=== PATIENT | female | born 1940 | race Caucasian/White ===

== ENCOUNTER 2017-11-02 18:41 | Emergency (ER) | payer MEDICARE, BC ==
[2017-11-02] MEDS ORDERED: Sodium Chloride 0.9% 10 ML Syringe FLUSH PRN (19:37)
[2017-11-02] MEDS ORDERED: Pantoprazole 40 MG Vial IVPUSH ONE (19:37)
[2017-11-02] MEDS ORDERED: Ondansetron 4 MG/2 ML SDV IVPUSH ONE (19:37)
--- NOTE | 2017-11-02 19:43 | EDM.PDOC ---
ED HPI GENERAL MEDICAL PROBLEM - General Chief Complaint: Abdominal Pain Stated Complaint: ABDOMINAL PAIN AND NASEOUS Time Seen by Provider: 11/02/17 19:20 Source of Information: Reports: Patient, Family, Old Records History Limitations: Reports: No Limitations - History of Present Illness INITIAL COMMENTS - FREE TEXT/NARRATIVE: Marilu comes into [facility] ED with a 7 mos hx of intermittent nausea. There has been an associated wt loss of several pounds, and restricted dietary intake. There has been no vomiting, constipation or yarelis diarrhea. Stools are not pale or discolored. Today she reports some retrosternal and epigastric burning pain in the abdomen. There is no radiation of pain into the back or pelvis. She denies ETOH, NSAID or ASA use. She takes Tylenol for arthritis, and meds for Parkinsons. She lives in assisted living, wheelchair bound. She had made an appt to see a PCP later this month, but current sxs necessitated an ED visit. She was treated for a UTI last month. Treatments DIVISION FIELD INSPECTOR: Reports: Other (see below) Other Treatments DIVISION FIELD INSPECTOR: Zofran Epigastric Pain Score (Numeric/FACES): 4 - Related Data Allergies Allergy/AdvReac Type Severity Reaction Status Date / Time No Known Allergies Allergy Verified 11/06/14 14:47 Home Meds: Home Meds ALPRAZolam [Alprazolam] 0.5 mg PO Q8H PRN 11/06/14 [History] Flaxseed Oil 1 tab PO DAILY 11/06/14 [History] Multivitamin [Tab A Zhanna] 1 tab PO DAILY 11/06/14 [History] [place]-3 Fatty Acids [Fish Oil] 300 mg PO BID 11/06/14 [History] PARoxetine [Paxil] 20 mg PO DAILY 11/06/14 [History] Simvastatin [Zocor] 20 mg PO WITHDINNER 11/06/14 [History] Thyroid,Pork [MAGISTRATE Thyroid] 30 mg PO DAILY 11/06/14 [History] Acetaminophen/HYDROcodone [[place] 325-7.5 MG] 1 tab PO Q8HR PRN #60 tablet [Rx] Enoxaparin [Lovenox] 40 mg SUBCUT DAILY #7 syringe 11/21/14 [Rx] Famotidine [Pepcid] 20 mg PO BID #30 tablet 11/21/14 [Rx] Ferrous Sulfate 325 mg PO DAILY #0 11/21/14 [Rx] Ondansetron [Zofran ODT] 4 mg PO Q4H PRN #12 tab.dis 11/21/14 [Rx] Polyethylene Glycol 3350 [MiraLAX] 17 gm PO DAILY #30 packet 11/21/14 [Rx] rOPINIRole [Requip] 1 mg PO QID #120 tablet 11/21/14 [Rx] Pantoprazole Sodium [Protonix] 40 mg PO DAILY #14 tablet. 11/02/17 [Rx] Past Medical History Other Musculoskeletal History: right hip replacement 12 years ago Neurological History: Reports: Parkinson's Other Neuro History: essential tremors Other Psychiatric History: depression when 2012 Social & Family History - Tobacco Use Smoking Status *Q: Former Smoker Years of Tobacco use: 5 Used Tobacco, but Quit: Yes Month/Year Tobacco Last Used: apr - Caffeine Use Caffeine Use: Reports: Soda - Recreational Drug Use Recreational Drug Use: No ED ROS GENERAL - Review of Systems Review Of Systems: See Below Constitutional: Reports: Malaise, Decreased Appetite, Weight Loss HEENT: Reports: No Symptoms Respiratory: Reports: No Symptoms Cardiovascular: Reports: No Symptoms Endocrine: Reports: No Symptoms GI/Abdominal: Reports: Abdominal Pain, Anorexia, Decreased Appetite, Nausea : Reports: Incontinence Musculoskeletal: Reports: Joint Pain (L hip chronic) Skin: Reports: No Symptoms Neurological: Reports: Pre-Existing Deficit, Tremors Psychiatric: Reports: Depression Hematologic/Lymphatic: Reports: No Symptoms Immunologic: Reports: No Symptoms ED EXAM, GI/ABD - Physical Exam Exam: See Below Exam Limited By: No Limitations General Appearance: Alert, WD/WN, No Apparent Distress, Anxious Eyes: Bilateral: Normal Appearance, EOMI Ears: Normal External Exam Nose: Normal Inspection Throat/Mouth: Normal Inspection, Normal Lips, Normal Teeth, Normal Gums, Normal Oropharynx, Normal Voice Head: Normocephalic Neck: Normal Inspection, Supple, Non-Tender Respiratory/Chest: Lungs Clear, Normal Breath Sounds, Chest Non-Tender Cardiovascular: Normal Peripheral Pulses, Regular Rate, Rhythm, No Edema, No Murmur, No Rub GI/Abdominal Exam: Normal Bowel Sounds, Soft, No Organomegaly, No Distention, No Mass, Tender (mild epigastric ) (Female) Exam: Deferred Rectal (Female) Exam: Deferred Back Exam: Normal Inspection Extremities: Limited Range of Motion (L hip, #3,4,5 digits both hands ( contractures)) Neurological: Alert, Oriented, CN II-XII Intact, Normal Cognition, No Motor/ Sensory Deficits Psychiatric: Normal Affect (mood neutral) Skin Exam: Warm, Dry, Intact, Normal Color, No Rash Lymphatic: No Adenopathy Course - Vital Signs Text/Narrative:: Following assessment at the [facility] ED, I started an IV in the LUE, and administered 1L of NS and 1L of D5LR over the next 2 hours, Protonix 40 mg IV infusion, and Zofran 4 mg IV. Marilu had complete resolution of sxs. Screening CBC and CMP labs were baseline, UA abnormal, UC set up. Last Recorded V/S: Last Vital Signs Temp 36.4 C 11/02/17 19:00 Pulse 80 11/02/17 19:00 Resp 18 11/02/17 19:00 BP 122/99 H 11/02/17 19:00 Pulse Ox 97 11/02/17 19:00 - Orders/Labs/Meds Orders: Active Orders 24 hr Category Date Time Status CULTURE URINE [RM] Stat Lab 11/02/17 22:26 Ordered UA W/MICROSCOPIC [URIN] Stat Lab 11/02/17 22:05 Ordered Dextrose 5%-Lactated Ringers 1,000 ml Med 11/02/17 21:15 Active IV ASDIRECTED Sodium Chloride 0.9% [Normal Saline] 1,000 ml Med 11/02/17 20:00 Active IV ASDIRECTED Sodium Chloride 0.9% [Saline Flush] Med 11/02/17 19:37 Active 10 ml FLUSH ASDIRECTED PRN Peripheral IV Insertion Adult [OM.PC] Routine Oth 11/02/17 19:37 Ordered Medication Orders Sodium Chloride (Normal Saline) 1,000 mls @ 999 mls/hr IV ASDIRECTED ROXANNE Last Admin: 11/02/17 20:00 Dose: 999 mls/hr Dextrose/Lactated Ringer's (Dextrose 5%-Lactated Ringers) 1,000 mls @ 999 mls/ hr IV ASDIRECTED ROXANNE Sodium Chloride (Saline Flush) 10 ml FLUSH ASDIRECTED PRN PRN Reason: Keep Vein Open Labs: Laboratory Tests 11/02/17 11/02/1718 Range/Units 19:45 19:45 19:45 WBC 5.3 (4.5-12.0) X10-3/uL RBC 4.58 (3.23-5.20) x10(6)uL Hgb 13.9 (11.5-15.5) g/dL Hct 41.5 D (30.0-51.3) % MCV 90.7 (80-96) fL MCH 30.4 (27.7-33.6) pg MCHC 33.6 (32.2-35.4) g/dL RDW 14.1 (11.5-15.5) % Plt Count 237 (125-369) X10(3)uL MPV 9.6 (7.4-10.4) fL Neut % (Auto) 56.7 (46-82) % Lymph % (Auto) 33.0 (13-37) % Emery % (Auto) 8.7 (4-12) % Eos % (Auto) 1 (1.0-5.0) % Baso % (Auto) 1 (0-2) % Neut # (Auto) 3.0 (1.6-8.3) # Lymph # (Auto) 1.8 (0.6-5.0) # Emery # (Auto) 0.5 (0.0-1.3) # Eos # (Auto) 0.0 (0.0-0.8) # Baso # (Auto) 0.0 (0.0-0.2) # Sodium 145 (135-145) mmol/L Potassium 3.2 L (3.5-5.3) mmol/L Chloride 106 (100-110) mmol/L Carbon Dioxide 27 (21-32) mmol/L BUN 7 (7-18) mg/dL Creatinine 0.6 (0.55-1.02) mg/dL Est Cr Clr Drug Dosing 71.78 mL/min Estimated GFR (MDRD) > 60 (>60) BUN/Creatinine Ratio 11.7 (9-20) Glucose 97 (80-116) mg/dL Calcium 8.4 L (8.6-10.2) mg/dL Total Bilirubin 0.4 (0.1-1.3) mg/dL AST 13 (5-25) IU/L ALT 8 L (12-36) U/L Alkaline Phosphatase 57 (56-112) IU/L Total Protein 6.8 (6.0-8.0) g/dL Albumin 3.4 (3.2-4.6) g/dL Globulin 3.4 g/dL Albumin/Globulin Ratio 1.0 Amylase 38 (25-115) U/L Urine Color (YELLOW) Urine Appearance (CLEAR) Urine pH (5.0-6.5) Ur Specific [place] (1.010-1.025) Urine Protein (NEGATIVE) mg/dL Urine Glucose (UA) (NEGATIVE) mg/dL Urine Ketones (NEGATIVE) mg/dL Urine Occult Blood (NEGATIVE) Urine Nitrite (NEGATIVE) Urine Bilirubin (NEGATIVE) Urine Urobilinogen (NEGATIVE) mg/dL Ur Leukocyte Esterase (NEGATIVE) Urine RBC (0) Urine WBC (0) Ur Squamous Epith Cells (NS,R,O) Urine Bacteria (NS) 11/02/17 Range/Units 22:05 WBC (4.5-12.0) X10-3/uL RBC (3.23-5.20) x10(6)uL Hgb (11.5-15.5) g/dL Hct (30.0-51.3) % MCV (80-96) fL MCH (27.7-33.6) pg MCHC (32.2-35.4) g/dL RDW (11.5-15.5) % Plt Count (125-369) X10(3)uL MPV (7.4-10.4) fL Neut % (Auto) (46-82) % Lymph % (Auto) (13-37) % Emery % (Auto) (4-12) % Eos % (Auto) (1.0-5.0) % Baso % (Auto) (0-2) % Neut # (Auto) (1.6-8.3) # Lymph # (Auto) (0.6-5.0) # Emery # (Auto) (0.0-1.3) # Eos # (Auto) (0.0-0.8) # Baso # (Auto) (0.0-0.2) # Sodium (135-145) mmol/L Potassium (3.5-5.3) mmol/L Chloride (100-110) mmol/L Carbon Dioxide (21-32) mmol/L BUN (7-18) mg/dL Creatinine (0.55-1.02) mg/dL Est Cr Clr Drug Dosing mL/min Estimated GFR (MDRD) (>60) BUN/Creatinine Ratio (9-20) Glucose (80-116) mg/dL Calcium (8.6-10.2) mg/dL Total Bilirubin (0.1-1.3) mg/dL AST (5-25) IU/L ALT (12-36) U/L Alkaline Phosphatase (56-112) IU/L Total Protein (6.0-8.0) g/dL Albumin (3.2-4.6) g/dL Globulin g/dL Albumin/Globulin Ratio Amylase (25-115) U/L Urine Color Yellow (YELLOW) Urine Appearance Slightly cloudy (CLEAR) Urine pH 8.0 H (5.0-6.5) Ur Specific [place] 1.015 (1.010-1.025) Urine Protein Negative (NEGATIVE) mg/dL Urine Glucose (UA) 250 H (NEGATIVE) mg/dL Urine Ketones 15 H (NEGATIVE) mg/dL Urine Occult Blood Negative (NEGATIVE) Urine Nitrite Positive H (NEGATIVE) Urine Bilirubin Negative (NEGATIVE) Urine Urobilinogen Normal (NEGATIVE) mg/dL Ur Leukocyte Esterase Large H (NEGATIVE) Urine RBC 0-5 (0) Urine WBC 50-75 H (0) Ur Squamous Epith Cells Few H (NS,R,O) Urine Bacteria Many H (NS) Meds: Medications Generic Name Dose Route Start Last Admin Trade Name Freq PRN Reason Stop Dose Admin Sodium Chloride 1,000 mls @ 999 mls/hr 11/02/17 20:00 11/02/17 20:00 Normal Saline IV 999 mls/hr ASDIRECTED ROXANNE Administration Dextrose/Lactated Ringer's 1,000 mls @ 999 mls/hr 11/02/17 21:15 Dextrose 5%-Lactated Ringers IV ASDIRECTED ROXANNE Sodium Chloride 10 ml 11/02/17 19:37 Saline Flush FLUSH ASDIRECTED PRN Keep Vein Open Discontinued Medications Generic Name Dose Route Start Last Admin Trade Name Freq PRN Reason Stop Dose Admin Ondansetron HCl 4 mg 11/02/17 19:37 11/02/17 20:35 Zofran IVPUSH 11/02/17 19:38 4 mg ONETIME ONE Administration Pantoprazole Sodium 40 mg 11/02/17 19:37 11/02/17 20:37 Protonix Iv IVPUSH 11/02/17 19:38 40 mg ONETIME ONE Administration Departure - Departure Time of Disposition: 22:28 Disposition: Home, Self-Care 01 Condition: Fair Clinical Impression: Gastritis Qualifiers: Gastritis type: unspecified gastritis Chronicity: chronic Gastritis bleeding: without bleeding Qualified Code(s): K29.50 - Unspecified chronic gastritis without bleeding - Discharge Information *PRESCRIPTION DRUG MONITORING PROGRAM REVIEWED*: No *COPY OF PRESCRIPTION DRUG MONITORING REPORT IN PATIENT ELIZABETH: No Prescriptions: Pantoprazole Sodium [Protonix] 40 mg PO DAILY #14 tablet.dr Referrals: Oliver Maher MD [Primary Care Provider] - Forms: ED Department Discharge - Problem List & Annotations (1) Gastritis SNOMED Code(s): 2623869 Code(s): K29.70 - GASTRITIS, UNSPECIFIED, WITHOUT BLEEDING Status: Acute Current Visit: Yes Annotation/Comment:: I dispensed Protonix 40 mg cap qd, and she may continue Zofran ODT prn only. She reportedly uses Hydrocodone at home sparingly for chronic L hip pain, monitored by PCP. Qualifiers: Gastritis type: unspecified gastritis Chronicity: chronic Gastritis bleeding: without bleeding Qualified Code(s): K29.50 - Unspecified chronic gastritis without bleeding - Problem List Review Problem List Initiated/Reviewed/Updated: Yes - My Orders Last 24 Hours: My Active Orders 11/02/17 19:37 Sodium Chloride 0.9% [Saline Flush] 10 ml FLUSH ASDIRECTED PRN Peripheral IV Insertion Adult [OM.PC] Routine 11/02/17 20:00 Sodium Chloride 0.9% [Normal Saline] 1,000 ml IV ASDIRECTED 11/02/17 21:15 Dextrose 5%-Lactated Ringers 1,000 ml IV ASDIRECTED 11/02/17 22:05 UA W/MICROSCOPIC [URIN] Stat 11/02/17 22:26 CULTURE URINE [RM] Stat - Assessment/Plan Last 24 Hours: My Active Orders 11/02/17 19:37 Sodium Chloride 0.9% [Saline Flush] 10 ml FLUSH ASDIRECTED PRN Peripheral IV Insertion Adult [OM.PC] Routine 11/02/17 20:00 Sodium Chloride 0.9% [Normal Saline] 1,000 ml IV ASDIRECTED 11/02/17 21:15 Dextrose 5%-Lactated Ringers 1,000 ml IV ASDIRECTED 11/02/17 22:05 UA W/MICROSCOPIC [URIN] Stat 11/02/17 22:26 CULTURE URINE [RM] Stat Plan: Her UA is abnormal, and a UC is set up. Recent treatment may not have been effective. She needs follow up with PCP this week when reports available.
[2017-11-02] MEDS ORDERED: Sodium Chloride 0.9% 1,000 ML IV SCH (20:00)
[2017-11-02] MEDS ORDERED: Dextrose 5%-Lactated Ringers 1,000 ML IV SCH (21:15)
[2017-11-03 02:37] VITALS: BP 99/56
== END 2017-11-02 23:02 | disposition home or self-care (01) ==
LOC: FB.ED 18:41
DX: K29.50 Unspecified chronic gastritis without bleeding (principal); G20 Parkinson's disease; F32.9 Major depressive disorder, single episode, unspecified; Z79.899 Other long term (current) drug therapy
CPT/HCPCS: 36415; 80053; 81001; 82150; 85025; 87086; 87186; 96361; 96374; 96375; 99284; C9113; J2405; J7030; J7042